=== PATIENT | female | born 1955 | race Caucasian/White ===

== ENCOUNTER 2020-12-05 10:59 | Outpatient (CLI) | payer BC, SELFPAY | END 2020-12-05 11:00 | disposition home or self-care (01) | LOC: ANHAUDIO 11:01 | PROVIDERS: PCP Internal Medicine; Visit Provider Internal Medicine | DX: H91.90 Unspecified hearing loss, unspecified ear (principal) | CPT/HCPCS: 92557; 92567 ==

== ENCOUNTER 2020-12-17 15:38 | Emergency (ER) | payer BC, SELFPAY ==
--- NOTE | ~2020-12-17 | XR_ITS ---
EXAMINATION: XR finger 5th LT min 2V DATE: 12/17/2020 16:15 INDICATION: Pain at the proximal and distal interphalangeal joints of the left fifth digit post fall. TECHNIQUE: Dorsal palmar, lateral and oblique views of the left fifth digit were obtained COMPARISON: None FINDINGS: Mallet finger deformity at the fifth digit with persistent flexion at the distal interphalangeal join t where there is an intra-articular fracture at the dorsal base of the distal phalanx. There is appro ximately 2 mm dorsal distraction of the small fracture fragment. Alignment is otherwise normal. No ot her fractures identified. 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 Soft tissue swelling most prominent dorsal to the fifth proximal interphalangeal sandra int. IMPRESSION: 1. 2 mm distraction of a small intra-articular avulsion fracture fragment at the dorsal base of the f ifth distal phalanx. Reviewed, dictated and finalized at location A. IMPRESSION: 1. 2 mm distraction of a small intra-articular avulsion fracture fragment at th e dorsal base of the fifth distal phalanx.
[2020-12-17 15:41] VITALS: BP 145/76; PULSE 80; RESP 20; TEMP 36.4; O2SAT 100
--- NOTE | 2020-12-17 16:58 | ED.GENADULT ---
HPI - General Adult General Chief complaint: Extremity Injury, Upper Stated complaint: finger injury Time Seen by Provider: 12/17/20 15:41 Source: patient, family and RN notes reviewed Mode of arrival: ambulatory Limitations: no limitations History of Present Illness HPI narrative: Patient is a 65-year-old female who presents to emergency department with left pinky finger injury that occurred today patient was carrying wood tripped and fell injuring the finger patient on arrival notes aching pain involving the distal phalanx of the left pinky finger patient notes that she also struck the anterior lateral aspect of the neck where she has an abrasion but notes only minimal discomfort at this location patient was seen at urgent care and referred to emergency department patient on arrival is not distressed patient was referred to the ER for concern of finger dislocation Related Data Allergies Allergy/AdvReac Type Severity Reaction Status Date / Time shellfish derived Allergy Unknown Anaphylaxis Verified 12/17/20 15:44 morphine AdvReac Hallucinati Verified 12/17/20 15:45 ng Shrimp Allergy Unknown SHELLFISH Uncoded 12/03/17 14:32 CAUSE SWELLING Review of Systems Review of Systems: All systems reviewed & are unremarkable except as noted in HPI and below Exam Narrative: Exam Narrative: GENERAL: Well-appearing, well-nourished, and in no acute distress. HEAD: Normocephalic, atraumatic. EYES: PERRLA and EOMI. ENT: Nares clear, no rhinorrhea or epistaxis. Mucous membranes moist. NECK: Supple. No adenopathy or masses. CHEST: Clear to auscultation. No respiratory distress. No wheezes rales or rhonchi HEART: Regular rate and rhythm. No murmur heard. Normal peripheral pulses. EXTREMITIES: Bruising swelling tenderness involving the DIP joint and distal phalanx of the left pinky finger. Abrasion to the anterior lateral left neck no posterior tenderness SKIN: Warm, dry, no rash. NEURO: No focal deficits. Alert and oriented x3. Cranial nerves II through XII grossly intact. Neurovascularly intact PSYCH: Normal mood and affect. Course Course Emergency Course: Patient's finger was splinted for comfort she will follow with hand surgery and primary care felt appropriate for outpatient reevaluation Consultations Consultation #1: Discussed case with Dr. Kim who will follow patient in clinic finger to be splinted Date: 12/17/20 Time: 17:02 Vital Signs Vital signs: Vital Signs Temperature 97.5 F L 12/17/20 15:41 Pulse Rate 80 12/17/20 15:41 Respiratory Rate 20 12/17/20 15:41 Blood Pressure 145/76 H 12/17/20 15:41 Pulse Oximetry 100 12/17/20 15:41 Temperature 97.5 F L 12/17/20 15:41 Pulse Rate 80 12/17/20 15:41 Respiratory Rate 20 12/17/20 15:41 Blood Pressure 145/76 H 12/17/20 15:41 Pulse Oximetry 100 12/17/20 15:41 Procedures Orthopedic Splinting/Casting Injury #1: Splinting/Casting Date: 12/17/20 Splinting/Casting Time: 17:03 Side: left Upper Extremity Injury Location: finger Splint: prefabricated Pre-Formed: metal foam finger splint Medical Decision Making MDM Narrative Medical decision making narrative: Patients injury or pain is consistent with musculoskeletal etiology. No signs of neurological or vascular compromise on exam. Compartments and tisues are soft without signs of compartment syndrome. Pain is felt appropriate for further evaluation on an outpatient basis. Vital Signs Vital Signs: Vital Signs Temperature 97.5 F L 12/17/20 15:41 Pulse Rate 80 12/17/20 15:41 Respiratory Rate 20 12/17/20 15:41 Blood Pressure 145/76 H 12/17/20 15:41 Pulse Oximetry 100 12/17/20 15:41 Temperature 97.5 F L 12/17/20 15:41 Pulse Rate 80 12/17/20 15:41 Respiratory Rate 20 12/17/20 15:41 Blood Pressure 145/76 H 12/17/20 15:41 Pulse Oximetry 100 12/17/20 15:41 Imaging Data Radiologist's impression: ITS Impressions F
== END 2020-12-17 17:13 | disposition home or self-care (01) ==
PROVIDERS: Emergency Provider Emergency Medicine; PCP Internal Medicine
DX: S62.637A Displaced fracture of distal phalanx of left little finger, initial encounter for closed fracture (principal); W01.0XXA Fall on same level from slipping, tripping and stumbling without subsequent striking against object, initial encounter
CPT/HCPCS: 29130; 73140; 99284

== ENCOUNTER 2020-12-21 11:06 | Outpatient (CLI) | payer BC, SELFPAY ==
[2020-12-21 11:58] LABS: Anion Gap 10 mmol/L (8-16); Blood Urea Nitrogen 22 mg/dL (7-17); Calcium 9.6 mg/dL (8.4-10.2); Carbon Dioxide 25 mmol/L (22-30); Chloride 110 mmol/L (98-107); Estimated Glomerular Filt Rate > 60; Glucose 66 mg/dL (65-105); Sodium 145 mmol/L (137-145)
== END 2020-12-21 11:07 | disposition home or self-care (01) ==
PROVIDERS: Anesthesiology; PCP Internal Medicine; Visit Provider Surgery Plastic and Reconstructive Surgery
DX: E11.9 Type 2 diabetes mellitus without complications (principal)
CPT/HCPCS: 36415; 80048

== ENCOUNTER → 2020-12-23 00:39 | Outpatient (CLI) | payer BC, SELFPAY ==
[2020-12-23 19:27] LABS: SARS-CoV-2 RNA PCR Negative
== END ==
PROVIDERS: PCP Internal Medicine; Visit Provider Surgery Plastic and Reconstructive Surgery
DX: Z01.812 Encounter for preprocedural laboratory examination (principal); Z20.822 Contact with and (suspected) exposure to COVID-19
CPT/HCPCS: C9803; U0003; U0005

== ENCOUNTER 2020-12-26 01:01 | Day surgery (SDC) | payer BC, SELFPAY ==
[2020-12-20 14:22] VITALS: BMI 27.8
--- NOTE | 2020-12-25 13:51 | P.PNAN_ITS ---
Anes - Initial Pre Proc Eval Procedure: Operation Date: 12/26/20 14:30 Proposed Procedures p Left Small Finger Closed Reduction, with Percutaneous Pinning - Gerard Hernandez MD Date/Time: 12/25/20 13:51 Surgeon: Gerard Hernandez MD Pre Op Diagnosis: Left small finger fracture Patient Data Age: 65 Gender: F Height: 1.55 m Weight: 66.81 kg Allergies Allergy/AdvReac Type Severity Reaction Status Date / Time gadobenic acid Allergy Severe Swelling Verified 12/20/20 13:45 [From contrast - MRI] of Lip/Tongue/Throat shellfish derived Allergy Severe Anaphylaxis Verified 12/20/20 13:45 morphine AdvReac Mild Hallucinati Verified 12/20/20 13:45 ng/vomittin g Shrimp Allergy Severe SHELLFISH Uncoded 12/20/20 13:45 CAUSE SWELLING Home Medications Medication Instructions Recorded Confirmed Type alprazolam [Xanax] 0.5 mg PO BID 12/20/20 12/20/20 History cyclobenzaprine 10 mg tablet 10 mg PO TID 12/20/20 12/20/20 History hydrocodone 2.5 mg-acetaminophen 1 tablet PO QID 12/20/20 12/20/20 History 325 mg tablet insulin NPH and regular human 22 unit SUBCUT QPM 12/20/20 12/20/20 History [Humulin 70/30 U-100 Insulin] insulin NPH and regular human 24 ml SUBCUT QAM 12/20/20 12/20/20 History [Humulin 70/30 U-100 Insulin] nitrofurantoin monohyd/m-cryst 1 tab-cap PO DAILY 12/20/20 12/20/20 History [Macrobid] Patient hx anesthesia problems: none Family hx anesthesia problems: none [facility], [facility] Past Medical History Medical History (Updated 12/25/20 @ 13:53 by Kendall Rivera MD) Anxiety Asthma Back pain Chronic narcotic use Diabetes Overweight (BMI 25.0-29.9) Surgical History Surgical History (Updated 12/20/20 @ 09:04 by Fatimah Peck CMA) History of appendectomy History of delivery History of cholecystectomy History of eye surgery Implants in eye History of spinal surgery Social History Social History (Updated 12/20/20 @ 09:03 by Fatimah Peck CMA) Smoking status: Former smoker Tobacco type: cigarettes Smoking end date: 07/07/02 Additional smoking assessment comments: 1 cigarette a day Alcohol intake: never Substance use: never Living arrangements: with family Spiritual care concerns: No Anes - Eval Final PreProcedure Day of Procedure 12/25/20 13:51 Patient weight: obese Heart: regular rate and rhythm Lungs: clear to auscultation and normal air movement Airway: Mallampati scale class II Neurological: alert and oriented Last oral intake: >/= 8 hours ASA classification: III Emergent: no Anesthetic plan: proceed Anesthesia type and monitoring: general GIVS and LMA Informed Consent: The patient's anesthetic plan and its attendant risks and benefits were discussed with the patient/family/POA. Questions were solicited and answers provided to the satisfaction of the patient/family/POA.
--- NOTE | ~2020-12-26 | XR_ITS ---
EXAMINATION: XR surgery orthopedic DATE: 12/26/2020 14:55 INDICATION: Intra-articular fracture of left hand fifth distal phalanx. TECHNIQUE: 4 views of left hand fifth digit were obtained. COMPARISON: Left hand fifth digit radiograph 12/17/2020 FINDINGS: There is an intra-articular fracture of dorsal base of fifth distal phalanx status post pin stuart with 2 wires. The avulsed fracture fragment is not well seen on the post-pinning views. IMPRESSION: 1. Intra-articular fracture of dorsal base of fifth distal phalanx status post percutaneous pinning. Reviewed, dictated and finalized at location A.
[2020-12-26 11:26] LABS: Glucose Point of Care 98 mg/dl (65-105)
[2020-12-26 11:35] VITALS: BMI 28.3
[2020-12-26] MEDS: LACTATED RINGERS 1,000 ML 30 ML IV CONT (11:44)
--- NOTE | 2020-12-26 13:29 | WPDHPUPDATE1 ---
History and Physical Update Update Date/Time: 12/26/20 13:29 History and Physical has been reviewed, including an updated exam of the patient. There are NO changes in the patient's condition. Risks, benefits, and alternatives have been discussed and questions answered. Patient agrees to proceed with procedure.
--- NOTE | 2020-12-26 14:55 | W.PM.PROC2 ---
Procedure Note - Detailed Date of Procedure 12/26/20 Pre-op Diagnosis Left small finger fracture Post-op Diagnosis same Procedure Performed Closed reduction percutaneous pinning left small finger distal phalanx fracture Surgeon Gerard Hernandez MD Anesthesia general Findings I was able to reduce the dorsal fracture segment successfully. Description of Procedure Patient was marked in the preoperative holding area with her and her family's verification. Risks, benefits, alternatives were discussed as well as realistic expectations of outcome. All questions answered to their satisfaction. Consent obtained. She was taken to the operating room placed supine on the operating room table. Anesthesia provided by anesthesiology. Prepped and draped in a standard sterile fashion. Surgical time-out was taken. 1% lidocaine with epinephrine was used to provide a digital block. I used 0.035 K-wire as a joystick in order to reduce the dorsal fracture segment. I was able to then placed this just proximal in order to provide a dorsal block. I extended the digit and under fluoroscopy this did appear to reduce into position and a 2nd 0.035 K-wire was introduced across the DIP joint. She tolerated well. This appeared to have good reduction in three views. Pins were cut and protective balls placed. Xeroform fluffs and a splint were placed followed by an Milan wrap. She tolerated well. Estimated Blood Loss 1 Drains No Packing No Pathology none sent Complications No immediate complications Condition stable Disposition PACU
[2020-12-26 15:06] LABS: Glucose Point of Care 107 mg/dl (65-105)
[2020-12-26 15:08] VITALS: BP 149/75; PULSE 95; RESP 13; TEMP 36.4; O2SAT 100
[2020-12-26 15:25] VITALS: BP 140/79; PULSE 88; RESP 12; O2SAT 100
--- NOTE | 2020-12-26 15:38 | SUR.PHASEI ---
[id number] campbell office to check on pain medication for discharge. no new orders patient currently on hydrocodone/acetaminophen
[2020-12-26 15:40] VITALS: BP 139/68; PULSE 89; RESP 16; O2SAT 97
[2020-12-26 16:00] VITALS: BP 139/74; PULSE 87; RESP 16
[2020-12-26 16:20] VITALS: BP 136/74; PULSE 85; RESP 16
== END 2020-12-26 16:32 | disposition home or self-care (01) ==
PROVIDERS: PCP Internal Medicine; Visit Provider Surgery Plastic and Reconstructive Surgery
PROC: (CPT 26756; principal; 2020-12-26 12:30)
DX: S62.637A Displaced fracture of distal phalanx of left little finger, initial encounter for closed fracture (principal); E11.9 Type 2 diabetes mellitus without complications; E66.9 Obesity, unspecified; Z68.28 Body mass index [BMI] 28.0-28.9, adult; F41.9 Anxiety disorder, unspecified; Z79.4 Long term (current) use of insulin; Z79.891 Long term (current) use of opiate analgesic; Z87.891 Personal history of nicotine dependence; W01.0XXA Fall on same level from slipping, tripping and stumbling without subsequent striking against object, initial encounter
CPT/HCPCS: 26756; 82948; A4565; C1713; J2250; J2405; J2704; J3010; J7120

== ENCOUNTER 2021-01-11 09:26 | Outpatient (CLI) | payer BC, SELFPAY ==
--- NOTE | ~2021-01-11 | XR_ITS ---
XR hand LT min 3V DATE: 01/11/2021 09:59 INDICATION: 2 weeks postoperative TECHNIQUE: 3 views COMPARISON: None FINDINGS: A K wire extends longitudinally through the distal and middle phalanges of the fifth digit, with reduction of the flexion deformity of the distal interphalangeal joint of the result of avulsio n fracture of the dorsal base of the distal phalanx. There is near-anatomic position and alignment at the fracture of the dorsal base of the distal phalanx. Diffuse osteopenia. IMPRESSION: K wire fixation of dorsal avulsion fracture of the base of the distal phalanx Reviewed, dictated and finalized at location A. IMPRESSION: K wire fixation of dorsal avulsion fracture of the base of the dist al phalanx
== END 2021-01-11 09:27 | disposition home or self-care (01) ==
PROVIDERS: PCP Internal Medicine; Visit Provider Surgery Plastic and Reconstructive Surgery
DX: S62.637A Displaced fracture of distal phalanx of left little finger, initial encounter for closed fracture (principal); X58.XXXA Exposure to other specified factors, initial encounter
CPT/HCPCS: 73130; 97110; 97165; L3933

== ENCOUNTER 2021-02-09 13:46 | Outpatient (RCR) | payer BC, SELFPAY | END 2021-02-09 23:59 | disposition home or self-care (01) | LOC: ANHAUDIO 13:46 | PROVIDERS: PCP Internal Medicine; Visit Provider Internal Medicine | DX: Z46.1 Encounter for fitting and adjustment of hearing aid (principal); S62.637D Displaced fracture of distal phalanx of left little finger, subsequent encounter for fracture with routine healing | CPT/HCPCS: 97110; 97763; V5160; V5261 ==

== ENCOUNTER 2021-02-27 11:00 | Outpatient (RCR) | payer BC, SELFPAY ==
--- NOTE | 2021-01-11 08:39 | OTOPEVAL ---
OCCUPATIONAL THERAPY INITIAL EVALUATION REPORT 01/11/21 Patient presents today 16 days following closed reduction and percutaneous pinning of the left small finger's distal phalanx after sustaining a mallet fracture. A custom fabricated DIP protection splint was fabricated to immobilize the DIP in extension and protect the remaining pin. Instructed in MCP active ROM for all digits. Plan to have patient follow up 1x/week for 4 weeks to progress ROM as more healing occurs. Thank you for referring Jina Moy to [facility].? The patient is scheduled to be seen for occupational therapy? 1x/week for 4 weeks. Please review, sign, date and return this plan of care ANDREZ. I agree with and certify that the following plan of care is medically necessary. Referring Physician Date Referring Provider: Gerard Hernandez MD *OT Outpatient Evaluation Start: 01/11/21 07:27 Freq: Status: Active Protocol: Document 01/11/21 07:37 AMANDA (Rec: 01/11/21 08:39 AMANDA [id number]) Therapy Assessment Status Assessment Status Assessment Status Evaluation Outpatient Past Medical History Past Medical History Source of Past Medical History Recalled from Previous Visit, Confirmed with Patient/Family Neurological History Hx Neurological Disorders No Significant History Cardiovascular History Hx Cardiac Disorders No Significant History Respiratory History Hx Asthma Yes: no inhaler usage Hx Other Respiratory Disorders Yes: use of steroids with covid 11/24 Gastrointestinal History Hx Appendectomy Yes Hx Cholecystectomy Yes Hx Diverticulitis Yes Genitourinary History Hx Genitourinary Disorders No Significant History Musculoskeletal History Hx Back Injury Yes: bulging discs lower back Hx Fractures Yes: left finger Hx Spinal Surgery Yes: cervical Hx Other Musculoskeletal Disorders Yes: left knee menicus tear Hematological History Hx Hematological Disorders No Significant History Endocrine History Hx Diabetes Yes HEENT History Hx Other HEENT Disorders Yes: retinopathy Integumentary History Hx Skin Disorders No Significant History Reproductive History Hx Section Yes: x2 Hx Post Menopausal Yes Hx Tubal Ligation Yes Psychosocial History Hx Anxiety Yes Pain History Has Past Pain Affected Your Daily Life Yes: back pain History of Long-Term Prescription Pain Yes: norco 2.5/325 for 10 Medication Use (Opiates) years Anesthesia History Hx Anesthesia Reactions No Significant History Other History Hx Other Medical Conditions Yes: covid positive 11/24 Evaluation Information Problem Diagnosis L small finger distal phalanx mallex fx s/p CRPP Onset 6
--- NOTE | 2021-02-09 15:54 | OTOPEVAL ---
OCCUPATIONAL THERAPY RE-EVALUATION AND PROGRESS REPORT 02/09/21 Patient presents today after pin removal with DIP extension lag of 45*. Passively the DIP is able to be pushed to nly 15 lag. Her splint was modified to hold the DIP here. Plan to follow up 1x/week for 4 weeks for ROM and splint modifications as she has improved ROM. Thank you for referring Jina Moy to [facility]. Please review, sign, date and return this re-evaluation report ANDREZ. I agree with and certify that the following plan of care is medically necessary. Referring Physician Date Referring Provider: Gerard Hernandez MD *OT Outpatient Re-Evaluation Start: 01/11/21 07:27 Problem Diagnosis L small finger distal phalanx mallex fx s/p CRPP Onset 12/26/20 Subjective Information Patient presents today for Query Text:As Reported By Patient/ reassessment after pin removal Family 02/02/21. She has an obvious flexion deformity at the PIP joint and will need a new splint for extension. Functionally she reports limited use of the left hand to take care of her grandson, opening bottles, and doing the dishes. Pain Assessment Timing of Pain Assessment Timing of Pain Assessment Re-assessment Pain Scale Pain Scale Used Numeric (1 - 10) Self Report Pain Assessment Left Finger, Little Reported Pain Level 2 Pain Description Aching,Dull Pain Frequency Intermittent Lowest Pain Intensity 0 Greatest Pain Intensity 5 Other Pain Aggravating Factors Gripping to open a soda bottle . Pain Score Pain Score 2: Self Report Interventions Used Interventions Used By Clinicians Education,Exercise,Splinting Upper Extremity Range of Motion Finger Range of Motion Left Little Finger MCP Joint Flexion - Active 90 Little Finger MCP Joint Extension - 0 Active Little Finger PIP Joint Flexion - Active 65 Little Finger PIP Joint Extension - 0 Active Little Finger DIP Joint Flexion - Active 60 Little Finger DIP Joint Extension - -45 Active Little Finger DIP Joint Extension - -15 Passive Finger Range of Motion Comments At rest, the small finger DIP is in 45* of flexion. With intrinsic plus position, the DIP moves into 40* of flexion. Able to passively push to 15* flexion and new splint holds the DIP here. Splint/Brace/Cast Asses
--- NOTE | 2021-02-27 11:36 | OTOPEVAL ---
OCCUPATIONAL THERAPY RE-EVALUATION AND DISCHARGE SUMMARY 02/27/21 Patient presents today for final re-assessment after beginning therapy 6 weeks ago following a left small finger distal phalanx fracture w/ mallet deformity. She has made progress with active DIP extension by 15* actively (measuring at a 30* bend at rest) and is now able to be passively extended to neutral. She is currently independent with all materials, night splinting, and verbalizes agreement with discharge today. No further skilled OT indicated at this time. Thank you for referring Jina Moy to [facility]. Please review, sign, date and return this D/C Note ANDREZ. I agree with and certify that the following plan of care is medically necessary. Referring Physician Date Referring Provider: Gerard Hernandez MD *OT Outpatient Evaluation Start: 01/11/21 07:27 Evaluation Information Problem Diagnosis L small finger distal phalanx mallex fx s/p CRPP Onset 12/26/20 Subjective Information Patient reports improved Query Text:As Reported By Patient/ functional use with the left Family hand, noting the ability to now open soda bottles, do the dishes, and lift her cast iron pans. She reports good understanding of HEP. Pain Assessment Timing of Pain Assessment Timing of Pain Assessment Pre-Treatment Pain Scale Pain Scale Used Numeric (1 - 10) Self Report Pain Assessment Left Finger, Little Reported Pain Level 2 Pain Description Aching Lowest Pain Intensity 0 Greatest Pain Intensity 2 Pain Aggravating Factors ADL's,Exercise/Activity Pain Score Pain Score 2: Self Report Interventions Used Interventions Used By Clinicians Education,Exercise Upper Extremity Range of Motion Finger Range of Motion Left Little Finger MCP Joint Flexion - Active 90 Little Finger MCP Joint Extension - 0 Active Little Finger PIP Joint Flexion - Active 80 Little Finger PIP Joint Extension - 0 Active Little Finger DIP Joint Flexion - Active 70 Little Finger DIP Joint Extension - -30 Active Little Finger DIP Joint Extension - 0 Passive Finger Range of Motion Comments At rest, the small finger DIP is in 30* of flexion. This improved from 45* flexion 3 weeks ago. With intrinsic plus position, the DIP moves into 15* of flexion. Able to passively push to neutral/0* today. This improved from only passively achieving -15* 3 weeks ago. Hand Medical Administrative Technician/[address]
== END 2021-02-27 16:05 | disposition home or self-care (01) ==
LOC: ANHOT 11:00
PROVIDERS: PCP Internal Medicine; Visit Provider Surgery Plastic and Reconstructive Surgery
DX: Z47.89 Encounter for other orthopedic aftercare (principal); S62.637D Displaced fracture of distal phalanx of left little finger, subsequent encounter for fracture with routine healing
CPT/HCPCS: 97110; 97165; 97763; L3933

== ENCOUNTER 2021-04-17 13:25 | Outpatient (RCR) | payer BC, SELFPAY ==
--- NOTE | 2021-04-17 14:23 | OTOPEVAL ---
OCCUPATIONAL THERAPY EVALUATION REPORT AND DISCHARGE SUMMARY 04/17/21 Jina presents today for fabrication of DIP extension splint for the left small finger. She is ~4 months following distal phalanx fracture and continues to wear a splint PRN to help reduce DIP extension lag. Two well fitting splints were fabricated and issued today. Patient is happy with their fit and is in agreement with discharge. No further skilled OT indicated at this time. Thank you for referring Jina Moy to [facility].? Please review, sign, date and return this D/C Summary ANDREZ. I agree with and certify that the following plan of care is medically necessary. Referring Physician Date Admitting Provider: Attending Provider: Gerard Hernandez MD Referring Provider: *OT Outpatient Evaluation Start: 04/17/21 14:09 Freq: Status: Active Protocol: Document 04/17/21 14:13 AMANDA (Rec: 04/17/21 14:23 AMANDA [email or web address]) Therapy Assessment Status Assessment Status Assessment Status Evaluation Outpatient Past Medical History Neurological History Hx Neurological Disorders No Significant History Cardiovascular History Hx Cardiac Disorders No Significant History Respiratory History Hx Asthma Yes: no inhaler usage Hx Other Respiratory Disorders Yes: use of steroids with covid 11/24 Gastrointestinal History Hx Appendectomy Yes Hx Cholecystectomy Yes Hx Diverticulitis Yes Genitourinary History Hx Genitourinary Disorders No Significant History Musculoskeletal History Hx Back Injury Yes: bulging discs lower back Hx Fractures Yes: left finger Hx Spinal Surgery Yes: cervical Hx Other Musculoskeletal Disorders Yes: left knee menicus tear Hematological History Hx Hematological Disorders No Significant History Endocrine History Hx Diabetes Yes HEENT History Hx Other HEENT Disorders Yes: retinopathy Integumentary History Hx Skin Disorders No Significant History Reproductive History Hx Section Yes: x2 Hx Post Menopausal Yes Hx Tubal Ligation Yes Psychosocial History Hx Anxiety Yes Pain History Has Past Pain Affected Your Daily Life Yes: back pain History of Long-Term Prescription Pain Yes: norco 2.5/325 for 10 Medication Use (Opiates) years Anesthesia History Hx Anesthesia Reactions No Significant History Other History Hx Other Medical Conditions Yes: covid positive 11/24 Evaluation Information Problem Diagnosis s/p distal phalanx fracture, left small finger Onset 12/26/20 Additional Evaluation Detail s/p closed reduction and percutaneous pinning with pin removal on 02/02/21. She
== END 2021-04-17 16:54 | disposition home or self-care (01) ==
LOC: ANHOT 13:25
PROVIDERS: PCP Internal Medicine; Visit Provider Surgery Plastic and Reconstructive Surgery
DX: S62.637D Displaced fracture of distal phalanx of left little finger, subsequent encounter for fracture with routine healing (principal)
CPT/HCPCS: 97165; L3933